=== PATIENT | female | born 1995 | race Caucasian/White ===

== ENCOUNTER → 2018-03-26 15:59 | Outpatient (REF) | payer MEDICAID, SELFPAY ==
[2018-03-31 12:45] LABS: Methylphenidate NEGATIVE; Ritalinic Acid NEGATIVE
== END ==
LOC: NCHCN 15:59
PROVIDERS: PCP Family Medicine; Visit Provider Physician Assistant Medical
DX: F90.9 Attention-deficit hyperactivity disorder, unspecified type (principal); Z51.81 Encounter for therapeutic drug level monitoring
CPT/HCPCS: 80360

== ENCOUNTER → 2018-04-20 10:00 | Outpatient (RCR) | payer MEDICAID, SELFPAY ==
--- NOTE | 2013-09-11 10:30 | TODAY_ITS ---
To: PCP [facility] Reason for today's visit: INTERESTED IN TEEN SASH Plan: PT CAME IN AND WE WENT OVER SASH AND THE PROGRAM & WHAT HER NEEDS AND GOALS ARE - SHE JUST AGED OUT OF DCF AND WANTS TO FINISH SCHOOL - ONLY HAS A FEW CREDITS LEFT, NEEDS TO GET A NEW SS CARD, WANTS TO GET PERMIT, HOUSING, JOB Action Plan: WORK ON GETTING SS CARD & TRANSCRIPTS Chronic Condition: Referred to:
--- NOTE | 2013-09-17 11:00 | TODAY_ITS ---
To: PCP Reason for today's visit: [facility] Plan: PT GOT HER NEW SS CARD & HER SS PAYMENT TRANSFERED TO HER, SHE GOT HER PERMIT, WE FILLED OUT APPLICATION FOR [facility], GOT HER SET UP A PATIENT WITH [facility] Action Plan: NEED TO GET TRANSCRIPTS Chronic Condition: Referred to:
--- NOTE | 2013-09-25 15:10 | TODAY_ITS ---
To: PCP [facility] Reason for today's visit: [facility] Plan: GOT PT'S TRANSCRIPTS, CALLED [facility] TO FOLLOW UP ON APPLICATION Action Plan: Chronic Condition: Referred to:
--- NOTE | 2013-09-27 10:00 | TODAY_ITS ---
To: PCP Reason for today's visit: [facility] Plan: SHE GOT RE APPLICAITON BACK WITH SOME QUESTIONS SO SHE CAME IN - WE ANSWERED THE QUESTIONS AND MAILED IT IN Action Plan: Chronic Condition: Referred to:
--- NOTE | 2013-10-01 11:00 | TODAY_ITS ---
To: PCP [facility] Reason for today's visit: [facility] Plan: WE CALLED RONAN BECAUSE SHE THOUGHT SHE SHOULD HAVE RECIEVED HER 3SQS CARD BY NOW, AMANDA SAID THEY HAVE 5-7 DAYS TO GET THE CARD OUT - SHE SAID IF SHE DOESN'T RECIEVE IT BY MONDAY TO CALL BACK OR GO IN. TOLD CARLYLE THAT I HAD A CALL INTO [employer] TO FIND OUT ABOUT SCHOOL AND GETTING QUALITY SYSTEMS TECHNICIAN JOB IN DAYCARE Action Plan: WORKING ON GETTING CARLYLE ENROLLED IN SCHOOL & PT JOB Chronic Condition: Referred to:
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
--- NOTE | 2013-10-18 10:57 | TODAY_ITS ---
To: PCP [facility] Reason for today's visit: [facility] Plan: PT CAME IN AND WE CALLED TO FILE AN APPEAL WITH [facility] AND DID THE PAPERWORK FOR EP MANAGEMENT & THEN HEADED OVER TO [facility] AND GOT HER ENROLLED, SHE STARTS 10/28 - RENALDO AT [facility] SUGGESTED FINDING OUT IF SHE SIGNED THE OVER 18 AGREEMENT Action Plan: I WILL CONTACT DCF AND SEE IF SHE SIGNED THE OVER 18 AGREEMENT & I WILL MAIL EP MANAGEMENT APPLICATION Chronic Condition: Referred to:
--- NOTE | 2013-11-29 11:00 | TODAY_ITS ---
To: PCP [facility] Reason for today's visit: [facility] Plan: MET WITH PT AT [facility]. SHE IS ON SCHEDULE FOR GRADUATION ON 01/24/14. WE DISCUSSED THE IMPORTANCE OF BEING AT SCHOOL WHEN SHE IS SUPPOSE TO BE THERE. WE CALLED RENAN AT [facility] AND SET UP A MEETING TO GET HER SIGNED UP FOR YOUTH DEVELOPMENT PROGRAM. WE TALKED ABOUT [facility] AND SHE WAS SUPER EXCITED AND SAID SHE WOULD GET APPLICATION DONE BY NEXT MONDAY. WE SIGNED THE [employer] APPLICATION. WE TALKED ABOUT STAYING FOCUSED & GETTING A BANK ACCOUNT & SETTING UP A BUDGET. Action Plan: Chronic Condition: Referred to:
--- NOTE | 2013-12-11 15:30 | TODAY_ITS ---
To: PCP [facility] Reason for today's visit: MET WITH RENAN QUEEN Plan: GOT HER SIGNED UP FOR THE YOUTH IN TRANSISTION PROGRAM. RENAN TOLD HER ABOUT THE TRANSITIONAL HOUSING IF SHE NEEDS IT FOR THE MEANTIME. SHE GOT HER ESSAYS FOR [employer] [facility] DONE AND JUST WAITING FOR ESTELLA TO GRADE THEM. SHE IS ON THE WAITING LIST FOR [facility] Action Plan: Chronic Condition: Referred to:
--- NOTE | 2013-12-23 15:00 | TODAY_ITS ---
To: PCP [facility] Reason for today's visit: [facility] Plan: CARLYLE CAME IN BECAUSE SHE WAS AT DR. 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 I CONTACTED ABOUT RENALDO GETTING YULIANA TRANSCRIPT FOR HER COLLEGE APPLICATION & THE PROBLEMS WITH HER NEW TRAVELING PHLEBOTOMIST. RENAN MORENO [facility] HAD EMAILED ME EARLIER ABOUT RESCHEDULING WITH CARLYLE BECAUSE SHE COULDN'T MAKE IT IN THE OFFICE. Action Plan: Chronic Condition: Referred to:
--- NOTE | 2014-01-06 11:00 | TODAY_ITS ---
To: PCP [facility] Reason for today's visit: [facility] Plan: MET WITH CARLYLE TWICE LAST WEEK AND TODAY. 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 SHE IS ALSO INTERESTED IN MENTORING KIDS THROUGH A DCF PROGRAM? I HAVE CONTACTED RENAN CAO TO FIND OUT MORE ABOUT SUCH A PROGRAM. SHE HAS COMPLETED THE ONLINE APPLICATION FOR [facility] - SHE EXPLAINED TO ME THAT SHE WOULD MUCH RATHER GO TO [facility] VS. [facility] BECAUSE OF THE LOCATION OF HER BIOLOGICAL FATHER. WE ARE STILL WORKING ON HOUSING AND I WILL CONTACT [facility] TO FIND OUT WHERE SHE IS AT ON THE LIST Action Plan: Chronic Condition: Referred to:
--- NOTE | 2014-01-16 11:31 | TODAY_ITS ---
To: PCP [facility] Reason for today's visit: [facility] Plan: MET WITH CARLYLE AND WE WILL FILLED OUT THE FAFSA APPLICATION AND THE VSAC APPLICATION. WE CALLED [facility] AND GOT AN APPT WITH AN ADMISSIONS COUNSELOR Action Plan: Chronic Condition: Referred to:
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
--- NOTE | 2014-01-24 11:00 | TODAY_ITS ---
To: PCP [facility] Reason for today's visit: GRADUATION Plan: WENT TO SEE CARLYLE GRADUATE FROM [employer] Action Plan: Chronic Condition: Referred to:
--- NOTE | 2014-01-30 10:31 | TODAY_ITS ---
To: PCP [facility] Reason for today's visit: CERTIFICATE Plan: MET WITH CARLYLE AND WE SEND PAPERWORK TO GET HER CERTIFICATE. LATER IN THE AFTERNOON WE MET WITH RENAN AT [facility] AND TRIED GETTING HER SS FIGURED OUT. SHE GOT A VOUCHER FOR $500 FROM [facility] SO SHE CAN MOVE IN WITH A FRIEND IN [place]. Action Plan: Chronic Condition: Referred to:
--- NOTE | 2014-02-06 13:00 | TODAY_ITS ---
To: PCP [facility] Reason for today's visit: [facility] Plan: MET WITH PT SEEMS TO BE DOING OK, STILL STAYING AT [facility] AND IS PLANNING ON STAYING THERE UNTIL IT CLOSES IN APR. WAIT FOR CERTIFICATE TO COME IN TO COMPLETE NATIONAL GUARD SIGN UPS. INTERESTED IN GOING TO SCHOOL AT [facility] [place] - LOOKING FOR A JOB WELL. GOT A PT JOB BABYSITTING FOR SOMEONE Monday. MEETING WITH PAIGE ON MONDAY AND WILL TALK TO HER ABOUT WHY SHE WON'T WRITE A LETTER STATING SHE IS MENTALLY CAPABLE OF TAKING CARE OF HERSELF SO THAT SHE WILL NOT NEED A PAYEE FOR HER SS CHECK. I ALSO GAVE HER A LITTLE CALENDAR BOOK SO THAT SHE CAN KEEP TRACK OF HER APPOINTMENTS. Action Plan: Chronic Condition: Referred to:
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
--- NOTE | 2014-02-20 13:00 | TODAY_ITS ---
To: PCP [facility] Reason for today's visit: [facility] Plan: MET WITH CARLYLE AT [facility], RENAN QUIROZ WHO WAS [facility]'S [employer] WORKER IS NO LONGER WORKING AT [facility]. ANOTHER RENAN IS TAKING OVER [facility] IN THE MEANTIME. WE CALLED [facility] AND UPDATED CARLYLE'S PHONE NUMBER AND MADE SURE THAT THEY GOT HER UPDATED ADDRESS AND ASKED THAT THEY CALL CARLYLE BACK TO TELL HER WHERE SHE IS AT ON THE WAITLIST. CARLYLE STATES THAT HER MOM IS GOING TO GIVE HER HER CHECK EACH MONTH AND THAT SHE OPENED A BANK ACCOUNT. CARLYLE FILLED OUT HER ESD IR AND WE MAILED THAT IN FOR HER 3SQS BENEFITS. WE ALSO MADE AN APPOINTMENT TO MEET WITH [facility] TO FIND OUT ABOUT GETTING HER ENROLLED IN SCHOOL THIS FALL. Action Plan: Chronic Condition: Referred to:
--- NOTE | 2014-02-26 11:00 | TODAY_ITS ---
To: PCP [facility] Reason for today's visit: [facility] Plan: MET WITH CARLYLE AND WE WENT TO CC TO GET HER SIGNED UP. SHE NEEDS TO GO ONLINE AND COMPLETE THE APPLICATION AND THEN DO THE TESTS SO THEY KNOW WHERE TO PLACE HER. 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 Action Plan: Chronic Condition: Referred to:
--- NOTE | 2014-03-12 10:00 | TODAY_ITS ---
To: PCP [facility] Reason for today's visit: [facility] Plan: MET WITH CARLYLE AND SHE REPORTS SHE HAD BEEN TO [facility] LAST WEEK AND THAT SHE HAS A DR APPT TOMORROW. SHE HASN'T DONE SCHOOL YET BUT STATES THAT SHE WANTS TO - WE SET UP A MEETING FOR NEXT MONDAY AND I SUGGESTED THAT SHE DO THE APPLICATION AND SCHEDULE THE ASSESSMENT TEXTS BY THEN. Action Plan: Chronic Condition: Referred to:
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
--- NOTE | 2014-03-24 10:00 | TODAY_ITS ---
To: PCP [facility] Reason for today's visit: [facility] Plan: MET WITH CARLYLE AND BROUGHT HER TO HER FOLLOW-UP DR APODACA. SHE STILL HAS NOT DONE HER APPLICATION FOR [facility] - STATES SHE IS GOING TO DO IT WITH RENAN TOMORROW. I TEXTED RENAN AND SHE HAD NO IDEA. SHE IS GOING TO TOUCH BASE WITH HER ON THAT. I TOLD CARLYLE SHE IS PERFECTLY CAPABLE OF DOING IT HERSELF AND IF SHE WANTS TO GO TO SCHOOL THIS SEMESTER SHE NEEDS TO DO THE APPLICATION AND THE ASSESSMENT TESTS MYRNA! I ALSO FOUND OUT [facility] HAD SOME GOOD APTS AVAILABLE IN [facility] SO I FAXED RENAN THE APPLICATION TO GIVE TO CARLYLE TO HAVE HER FILL OUT. Action Plan: CARLYLE TO DO [facility] APPLICATION AND ASSESSMENT TESTS & FILL OUT [facility] APPLICATION Chronic Condition: Referred to:
== END ==
LOC: COCO 09-11 10:30
PROVIDERS: PCP Nurse Practitioner Family
DX: 799.89 (principal)

== ENCOUNTER 2018-05-11 16:48 | Outpatient (REF) | payer MEDICAID, SELFPAY ==
[2018-05-11 19:28] LABS: HGB 12.7 g/dL (12.0-15.5); Mean Corp. HGB Concentration 31.8 g/dL (32.0-36.0); Mean Corpuscular Hemoglobin 24.9 pg (27.0-33.0); Mean Corpuscular Volume 78.4 fL (80-95); Mean Platelet Volume 10.4 fL (8.0-11.0); Platelet Count 365 x1000/uL (130-400); RBC Distribution Width 16.1 % (11.7-14.6); White Blood Cell Count 13.05 k/cumm (4.4-10.8)
[2018-05-11 19:42] LABS: TSH (W/Ref FT4) 0.85 uIU/mL (0.358-3.74)
== END 2018-05-11 17:08 ==
LOC: NCHCN 16:48
PROVIDERS: PCP Nurse Practitioner Family; Visit Provider Family Medicine
DX: R51 Headache (principal); R53.83 Other fatigue; O24.419 Gestational diabetes mellitus in pregnancy, unspecified control
CPT/HCPCS: 85027; 83735; 84443

== ENCOUNTER 2018-06-10 00:58 | Emergency (ER) | payer MEDICAID, SELFPAY ==
[2018-06-10 01:18] VITALS: BP 140/70; PULSE 94; RESP 28; TEMP 37; O2SAT 98
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
[2018-06-10 01:55] VITALS: RESP 16
[2018-06-10] MEDS: Lactated Ringers 1,000 ML 200 ML IV (01:55)
[2018-06-10] MEDS: Normal Saline Flush 10 ML SYR IVP (01:55)
[2018-06-10 02:01] LABS: Abs Immature Grans 0.02 k/cumm (0.0-0.09); Absolute Basophil Count 0.03 k/cumm (0.0-0.2); Absolute Eosinophil Count 0.06 k/cumm (0.0-0.7); Absolute Lymphocyte Count 3.03 k/cumm (1.2-3.4); Basophils % 0.2; Eosinophils % 0.4; HCT 40.7 % (36.0-46.0); Immature Grans % 0.1; Lymphocytes % 21.4; Mean Corp. HGB Concentration 31.9 g/dL (32.0-36.0); Mean Corpuscular Hemoglobin 24.9 pg (27.0-33.0); Mean Corpuscular Volume 77.8 fL (80-95); Mean Platelet Volume 9.8 fL (8.0-11.0); Monocytes % 4.2; Neutrophils % 73.7; Platelet Count 369 x1000/uL (130-400); RBC 5.23 m/cumm (4.00-5.20); RBC Distribution Width 15.8 % (11.7-14.6); White Blood Cell Count 14.14 k/cumm (4.4-10.8)
[2018-06-10 02:04] LABS: Absolute Monocyte Count 0.59 k/cumm (0.11-0.7); Absolute Neutrophil Count 10.42 k/cumm (1.2-6.7)
[2018-06-10 02:14] LABS: VALPROIC ACID 26.5 ug/mL (50-100)
[2018-06-10 02:15] LABS: ALT 24 U/L (12-78); AST 19 U/L (15-37); Albumin 3.7 g/dL (3.4-5.0); Alkaline Phosphatase 94 U/L (46-116); Anion Gap 14.1 mmol/L (3-11); BUN 9 mg/dL (7-18); Bilirubin, Total 0.1 mg/dL (0.2-1.0); CO2 24.9 mmol/L (21.0-32.0); CREATININE 0.65 mg/dL (0.55-1.02); Calcium 8.9 mg/dL (8.5-10.1); Chloride 103 mmol/L (98-107); ETHANOL BLOOD 173.9 mg/dL (<3); Glucose 99 mg/dL (70-100); Potassium 3.5 mmol/L (3.5-5.1); Sodium 142 mmol/L (136-145); Total Protein 8.4 g/dL (6.4-8.2)
[2018-06-10 02:27] LABS: Salicylate < 2.8 mg/dL (2.8-20.0)
[2018-06-10 02:44] LABS: Acetaminophen < 2 ug/mL (10-30)
[2018-06-10 02:57] LABS: HCG Qual (Serum) Negative
[2018-06-10 04:32] VITALS: BP 109/66; PULSE 87; RESP 16; TEMP 36.5; O2SAT 98
--- NOTE | 2018-06-10 06:10 | NUR.NOTE ---
Nursing Note: Attempted to call boyfriend's phone number once again, no answer. Unable to leave VM. Will leave bottles in labeled bag here in ED at [facility] desk, under counter.
== END 2018-06-10 04:43 | disposition home or self-care (01) ==
PROVIDERS: Emergency Provider Emergency Medicine; PCP Nurse Practitioner Family
DX: F10.129 Alcohol abuse with intoxication, unspecified (principal); Y90.6 Blood alcohol level of 120-199 mg/100 ml
CPT/HCPCS: 36415; 80053; 81025; 96360; 96361; 99284; 80164; 80320; 80329; 84703; 85025

== ENCOUNTER 2018-06-22 12:58 | Outpatient (RCR) | payer MEDICAID, SELFPAY ==
--- NOTE | 2018-06-22 12:59 | COCO.CNN ---
Primary Reason for Visit Medical/Dental/Vision (Updates) Referral to Care Coordination Referral to Care Coordination: Yes Type: PCP Referral to Services: No Care Plan - Plan of Care Assessment/Background: Kendrick came in with her baby and new room mate. She states she is doing ok. She asked that I reach out to her mom to help with her dads insurance. She has had multiple visits to [facility] for her son. She will be having another one comeing up. We discused gas cards and how to get help with that in the future. Plan of Care: as needed or a home vist with [facility] Self Management Plan Complete?: Yes
== END 2018-07-20 23:59 | disposition home or self-care (01) ==
LOC: COCO 12:58
PROVIDERS: PCP Nurse Practitioner Family; Visit Provider Nurse Practitioner Family
DX: R69 Illness, unspecified (principal)

== ENCOUNTER 2018-11-09 22:45 | Emergency (ER) | payer MEDICAID, SELFPAY ==
[2018-11-09 22:50] VITALS: PULSE 105; RESP 16; TEMP 36.7; O2SAT 99
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
== END 2018-11-09 23:22 | disposition home or self-care (01) ==
PROVIDERS: Emergency Provider Emergency Medicine; PCP Nurse Practitioner Family
DX: S61.411A Laceration without foreign body of right hand, initial encounter (principal); X58.XXXA Exposure to other specified factors, initial encounter
CPT/HCPCS: 99282

== ENCOUNTER 2018-12-08 02:27 | Emergency (ER) | payer MEDICAID, SELFPAY ==
[2018-12-08 02:36] VITALS: BP 120/76; PULSE 92; RESP 16; TEMP 36.5; O2SAT 99
[2018-12-08 02:44] VITALS: RESP 15
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
[2018-12-08 03:12] VITALS: BP 120/76; PULSE 90; RESP 15; TEMP 36.5; O2SAT 99
[2018-12-08] MEDS: Albuterol HFA 8 GM 60 PUFF INH IH (03:12)
[2018-12-08] MEDS: Acetaminophen 325 MG TAB 650 MG PO (03:12)
[2018-12-08] MEDS: Inhaler, Assist Device 1 EACH MC (03:12)
== END 2018-12-08 03:17 | disposition home or self-care (01) ==
PROVIDERS: Emergency Provider Emergency Medicine; PCP Nurse Practitioner Family
DX: R07.89 Other chest pain (principal); J45.909 Unspecified asthma, uncomplicated
CPT/HCPCS: 99282

== ENCOUNTER 2019-01-14 20:52 | Emergency (ER) | payer MEDICAID, SELFPAY ==
[2019-01-14 20:56] VITALS: BP 142/114; PULSE 103; RESP 18; TEMP 37.3; O2SAT 99
[2019-01-14 21:02] VITALS: BP 148/91
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
[2019-01-14] MEDS: Acetaminophen 325 MG TAB 650 MG PO (21:52)
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
== END 2019-01-14 23:20 | disposition home or self-care (01) ==
PROVIDERS: Emergency Provider Student in an Organized Health Care Education/Training Program; PCP Nurse Practitioner Family
DX: M25.521 Pain in right elbow (principal); M25.531 Pain in right wrist; M79.641 Pain in right hand; Y04.0XXA Assault by unarmed brawl or fight, initial encounter
CPT/HCPCS: 99284; 73080; 73110; 73130

== ENCOUNTER 2019-01-20 02:34 | Emergency (ER) | payer MEDICAID, SELFPAY ==
[2019-01-20 02:41] VITALS: BP 140/76; PULSE 108; RESP 18; TEMP 36.3; O2SAT 98
--- NOTE | 2019-01-20 02:53 | DI.RAD_ITS ---
SYMPTOM/DIAGNOSIS: PAIN, S/P FALL RIGHT KNEE: Three views were obtained. No fracture is seen.
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
--- NOTE | 2019-01-20 04:55 | DI.VRAD_ITS ---
EXAM: XR Right Knee EXAM DATE/TIME: 01/20/2019 2:53 AM CLINICAL HISTORY: 24 years old, female; Knee; Right; Patient HX: Pain S/P fall TECHNIQUE: Imaging protocol: XR Right knee. Views: 3 views. COMPARISON: CR RIGHT KNEE 3 VIEWS 05/28/2014 6:26 PM FINDINGS: Bones/joints: Typical for age. No evidence of acute fracture. Soft tissues: Unremarkable. IMPRESSION: No acute findings. Dictated and Authenticated by: Faisal Joy MD. Ordering:CORETTA Covarrubias MD
== END 2019-01-20 03:24 | disposition home or self-care (01) ==
PROVIDERS: Emergency Provider Emergency Medicine
DX: S80.01XA Contusion of right knee, initial encounter (principal); Y04.8XXA Assault by other bodily force, initial encounter
CPT/HCPCS: 29505; 73562; 99283; 99282; E0114; L1830

== ENCOUNTER 2019-04-29 10:51 | Emergency (ER) | payer MEDICAID, SELFPAY ==
[2019-04-29 10:38] VITALS: BP 136/64; PULSE 94; RESP 18; TEMP 37.2; O2SAT 98
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
[2019-04-29 12:31] LABS: Bilirubin Negative (Negative); Blood Trace-intact (Negative); Clarity Clear (Clear); Glucose Negative (Negative); Ketones Negative (Negative); Leukocyte Esterase Negative (Negative); Nitrite Negative (Negative); Specific Gravity 1.015 (1.005-1.025); Urobilinogen 0.2 EU/dL (Up TO 0.2)
[2019-04-29] MEDS: Normal Saline Flush 10 ML SYR IVP (12:40)
[2019-04-29] MEDS: Normal Saline 1,000 ML 1000 ML IV (12:40)
[2019-04-29 12:41] LABS: *AMPHETAMINES SCREEN URINE Negative (Negative); *BARBITURATES SCREEN URINE Negative (Negative); *BENZODIAZEPINES SCREEN URINE Negative (Negative); Bacteria Few HPF (Negative); C & S Indicated? No; Cannabinoids THC Negative (Negative); Casts Negative LPF (Negative); Cocaine Screen,Urine Negative (Negative); Crystals Negative HPF (Negative); Epithelial Cells Few HPF (Negative); METHADONE URINE SCREEN Negative (Negative); Mucus Moderate (Negative); OPIATES URINE SCREEN Negative (Negative); RBC 0-2 (0-2); WBC 0-2 HPF (0-5)
[2019-04-29 12:45] LABS: Abs Immature Grans 0.04 k/cumm (0.0-0.09); Absolute Basophil Count 0.03 k/cumm (0.0-0.2); Absolute Eosinophil Count 0.02 k/cumm (0.0-0.7); Absolute Lymphocyte Count 3.67 k/cumm (1.2-3.4); Absolute Monocyte Count 0.57 k/cumm (0.11-0.7); Basophils % 0.2; Eosinophils % 0.1; HCT 41.9 % (36.0-46.0); HGB 13.1 g/dL (12.0-15.5); Immature Grans % 0.2; Lymphocytes % 22.6; Mean Corp. HGB Concentration 31.3 g/dL (32.0-36.0); Mean Corpuscular Hemoglobin 24.2 pg (27.0-33.0); Mean Corpuscular Volume 77.4 fL (80-95); Mean Platelet Volume 9.8 fL (8.0-11.0); Monocytes % 3.5; Neutrophils % 73.4; Platelet Count 448 x1000/uL (130-400); RBC 5.41 m/cumm (4.00-5.20); RBC Distribution Width 16.4 % (11.7-14.6); White Blood Cell Count 16.25 k/cumm (4.4-10.8)
[2019-04-29 12:48] LABS: Absolute Neutrophil Count 11.93 k/cumm (1.2-6.7)
[2019-04-29 12:48] LABS: Tricyclic Antidepressants Negative (Negative)
[2019-04-29 13:20] LABS: ALT 33 U/L (14-59); AST 24 U/L (15-37); Albumin 4.2 g/dL (3.4-5.0); Alkaline Phosphatase 97 U/L (46-116); Anion Gap 11.2 mmol/L (3-11); BUN 6 mg/dL (7-18); Bilirubin, Total 0.6 mg/dL (0.2-1.0); CO2 25.8 mmol/L (21.0-32.0); CREATININE 0.64 mg/dL (0.55-1.02); Calcium 9.1 mg/dL (8.5-10.1); Chloride 104 mmol/L (98-107); ETHANOL BLOOD 18.9 mg/dL (<3); Glucose 82 mg/dL (70-100); Magnesium 1.8 mg/dL (1.8-2.4); Potassium 3.7 mmol/L (3.5-5.1); Sodium 141 mmol/L (136-145); Total Protein 8.6 g/dL (6.4-8.2)
[2019-04-29 13:23] LABS: Troponin I < 0.05 ng/mL (0.00-0.06)
[2019-04-29 13:34] LABS: Salicylate < 2.8 mg/dL (2.8-20.0)
[2019-04-29 13:35] LABS: Acetaminophen < 2 ug/mL (10-30)
--- NOTE | 2019-04-29 14:55 | NUR.NOTE ---
pt provided with meal tray after [facility] exam boyfriend sitting in room with pt Nursing Note:
[2019-04-29] MEDS: Ondansetron O.D.T. 4 MG TABEF (16:30)
[2019-04-29] MEDS: metroNIDAZOLE 500 MG TAB (16:32)
[2019-04-29] MEDS: Levonorgestrel 1.5 MG KIT/PACKET PO (16:33)
[2019-04-29] MEDS: Azithromycin 250 MG TAB (16:34)
[2019-04-29] MEDS: cefTRIAXone 250 MG VIAL (16:35)
[2019-04-29] MEDS: Hepatitis B Virus Vaccine 20 MCG/ML VIAL IM (17:19)
[2019-04-29] MEDS: Emtricitabine/Tenofovir 200 mg/300 mg TAB 1 EACH (17:20)
[2019-04-29] MEDS: Raltegravir Potassium 400 MG TAB PO (17:21)
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
[2019-04-29 18:54] VITALS: PULSE 89; RESP 16; TEMP 37.1; O2SAT 97
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
== END 2019-04-29 18:55 | disposition home or self-care (01) ==
PROVIDERS: Emergency Provider Physician Assistant
DX: F41.8 Other specified anxiety disorders (principal); S50.812A Abrasion of left forearm, initial encounter; X78.0XXA Intentional self-harm by sharp glass, initial encounter; R10.2 Pelvic and perineal pain; E11.9 Type 2 diabetes mellitus without complications
CPT/HCPCS: 36415; 80053; 80307; 81025; 90471; 93005; 96361; 96372; 99285; 80320; 80329; 81003; 81015; 83735; 84484; 85025; 93010; J0696

== ENCOUNTER 2019-07-12 13:15 | Outpatient (REF) | payer MEDICAID, SELFPAY ==
[2019-07-15 11:17] LABS: Syphilis Total Ab w/Reflex Nonreactive (Nonreactive)
[2019-07-15 11:36] LABS: HBs Antibody, Quant 6.5 mIU/mL (See Note); Hepatitis B Surface Ab Negative (See Note)
[2019-07-15 11:37] LABS: HIV-1/2 Ag & Ab Screen Negative (Negative)
[2019-07-15 11:48] LABS: Hepatitis B Surface Ag Negative (Negative)
[2019-07-15 12:51] LABS: Hep B Core Antibody Negative (Negative); Hepatitis C Ab w Rflx HCV PCR Negative (Negative)
== END 2019-07-12 13:35 ==
LOC: LBO 13:15
PROVIDERS: Visit Provider Nurse Practitioner Women's Health
DX: Z11.3 Encounter for screening for infections with a predominantly sexual mode of transmission (principal); Z11.59 Encounter for screening for other viral diseases; Z01.84 Encounter for antibody response examination
CPT/HCPCS: 36415; 86704; 86706; 86803; 87340; 87389; 86780

== ENCOUNTER 2019-07-26 08:16 | Emergency (ER) | payer MEDICAID, SELFPAY ==
[2019-07-26 08:24] VITALS: BP 135/70; PULSE 91; RESP 16; TEMP 36.8; O2SAT 100
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
[2019-07-26 09:08] VITALS: BP 135/70; PULSE 91; RESP 16; TEMP 36.8; O2SAT 100
== END 2019-07-26 09:08 | disposition home or self-care (01) ==
PROVIDERS: Emergency Provider Physician Assistant
DX: K13.0 Diseases of lips (principal); S01.531A Puncture wound without foreign body of lip, initial encounter; W26.8XXA Contact with other sharp object(s), not elsewhere classified, initial encounter
CPT/HCPCS: 99283

== ENCOUNTER 2019-08-06 21:36 | Emergency (ER) | payer MEDICAID, SELFPAY ==
[2019-08-06 21:42] VITALS: BP 132/78; PULSE 106; RESP 16; TEMP 36.9; O2SAT 100
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
[2019-08-06 22:37] LABS: Bilirubin Negative (Negative); Blood Negative (Negative); Clarity Clear (Clear); Glucose Negative (Negative); Ketones Negative (Negative); Leukocyte Esterase Negative (Negative); Nitrite Negative (Negative); Urobilinogen 0.2 EU/dL (Up TO 0.2)
[2019-08-06 23:02] VITALS: BP 112/76; PULSE 87; RESP 16; TEMP 37.2; O2SAT 97
== END 2019-08-06 22:55 | disposition home or self-care (01) ==
PROVIDERS: Emergency Provider Emergency Medicine
DX: R10.32 Left lower quadrant pain (principal); R11.2 Nausea with vomiting, unspecified
CPT/HCPCS: 81025; 99283; 81003

== ENCOUNTER 2019-08-29 15:47 | Emergency (ER) | payer MEDICAID, SELFPAY ==
[2019-08-29 15:49] VITALS: BP 166/87; PULSE 95; RESP 14; TEMP 36.8; O2SAT 99
[2019-08-29 17:01] LABS: Abs Immature Grans 0.04 k/cumm (0.0-0.09); Absolute Basophil Count 0.03 k/cumm (0.0-0.2); Absolute Eosinophil Count 0.12 k/cumm (0.0-0.7); Absolute Lymphocyte Count 3.11 k/cumm (1.2-3.4); Absolute Monocyte Count 0.75 k/cumm (0.11-0.7); Absolute Neutrophil Count 9.52 k/cumm (1.2-6.7); Basophils % 0.2; Eosinophils % 0.9; HCT 40.4 % (36.0-46.0); HGB 12.4 g/dL (12.0-15.5); Immature Grans % 0.3 %; Lymphocytes % 22.9; Mean Corp. HGB Concentration 30.7 g/dL (32.0-36.0); Mean Corpuscular Hemoglobin 24.5 pg (27.0-33.0); Mean Corpuscular Volume 79.8 fL (80-95); Mean Platelet Volume 10.1 fL (8.0-11.0); Monocytes % 5.5; Neutrophils % 70.2; Platelet Count 440 x1000/uL (130-400); RBC 5.06 m/cumm (4.00-5.20); RBC Distribution Width 15.8 % (11.7-14.6); White Blood Cell Count 13.56 k/cumm (4.4-10.8)
[2019-08-29 17:20] LABS: Bilirubin Negative (Negative); Blood Negative (Negative); Clarity Cloudy (Clear); Glucose Negative (Negative); Ketones Negative (Negative); Leukocyte Esterase Small (Negative); Nitrite Negative (Negative); Urobilinogen 0.2 EU/dL (Up TO 0.2)
[2019-08-29 17:29] LABS: Bacteria Packed HPF (Negative); C & S Indicated? No/Sq. Contamination; Epithelial Cells Many HPF (Negative)
[2019-08-29 17:30] LABS: ALT 25 U/L (14-59); AST 15 U/L (15-37); Albumin 3.6 g/dL (3.4-5.0); Alkaline Phosphatase 84 U/L (46-116); Anion Gap 11.7 mmol/L (3-11); BUN 11 mg/dL (7-18); Bilirubin, Total 0.2 mg/dL (0.2-1.0); CO2 26.3 mmol/L (21.0-32.0); CREATININE 0.58 mg/dL (0.55-1.02); Calcium 8.9 mg/dL (8.5-10.1); Chloride 104 mmol/L (98-107); Glucose 79 mg/dL (74-106); Potassium 3.6 mmol/L (3.5-5.1); Sodium 142 mmol/L (136-145); Total Protein 8.4 g/dL (6.4-8.2)
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
[2019-08-29 19:16] LABS: Hemoglobin A1C 5.6 % (3.8-5.6)
== END 2019-08-29 18:08 | disposition home or self-care (01) ==
PROVIDERS: Emergency Provider Physician Assistant
DX: E11.8 Type 2 diabetes mellitus with unspecified complications (principal); Z76.0 Encounter for issue of repeat prescription; Z79.84 Long term (current) use of oral hypoglycemic drugs
CPT/HCPCS: 36415; 80053; 81025; 99283; 81003; 81015; 83036; 85025

== ENCOUNTER 2019-09-11 18:44 | Emergency (ER) | payer MEDICAID, SELFPAY ==
[2019-09-11 18:47] VITALS: BP 128/79; PULSE 85; RESP 18; O2SAT 99
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
--- NOTE | 2019-09-11 19:44 | DI.RAD_ITS ---
EXAM: XR KNEE RT 4V AP,LAT,JATINDER,PAT CLINICAL HISTORY: trauma, patellar pain. TECHNIQUE: 2D digital imaging was performed. COMPARISON: XR knee RT 3V AP,lat,jatinder from 01/20/2019 FINDINGS: BONES: No acute fracture is present. No bony destructive lesion is seen. JOINTS: The knee is normally aligned. No joint effusion is seen. SOFT TISSUE: Normal. IMPRESSION: Unremarkable radiographs of the right knee.
--- NOTE | 2019-09-11 19:49 | DI.VRAD_ITS ---
PROCEDURE INFORMATION: Exam: XR Right Knee Exam date and time: 09/11/2019 7:43 PM Age: 24 years old Clinical indication: Knee; Right; Patient HX: Patellar pain, popping occasionally TECHNIQUE: Imaging protocol: XR Right knee. Views: 4 or more views. COMPARISON: No relevant prior studies available. FINDINGS: Bones/joints: Normal. Soft tissues: Normal. IMPRESSION: No acute findings. Dictated and Authenticated by: Bayron Espino MD. Ordering:KALI Frank MD
== END 2019-09-11 20:45 | disposition home or self-care (01) ==
PROVIDERS: Emergency Provider Student in an Organized Health Care Education/Training Program; PCP Registered Nurse
DX: M25.562 Pain in left knee (principal); W19.XXXA Unspecified fall, initial encounter; E11.9 Type 2 diabetes mellitus without complications; Z79.84 Long term (current) use of oral hypoglycemic drugs
CPT/HCPCS: 29505; 99283; 73564; E0114

== ENCOUNTER 2022-01-03 11:30 | Observation (INO) | payer MEDICAID, SELFPAY ==
--- NOTE | 2022-01-03 | DI.US_ITS ---
Exam(s) US OB GHISLAINE WEIGHT EXAM: US OB GHISLAINE WEIGHT CLINICAL HISTORY: anatomy, gestational age, GHISLAINE. TECHNIQUE: Transabdominal obstetrical ultrasound performed. COMPARISON: US OB US 2-3 TRIMESTER TRANSABD*P from 04/17/2017 FINDINGS: Transabdominal obstetrical ultrasound performed. FINDINGS: Number of fetuses: One. position: Cephalic. heart rate: 157 bpm. Placental grade: There is a grade 2 placenta. Placental location: Posterior. No evidence of previa. BIOMETRIC DATA: BPD: 7.7cm consistent with 30 weeks 6 days. HC: 30.7cm consistent with 34 weeks 1 day. AC: 29.4cm consistent with 33 weeks 3 days. FL: 6.4cm consistent with 33 weeks. EFW: 2123 grms Composite Age: 32 weeks 6 days EDC by US: 02/22/2022 Heart Rate: 157BPM Amniotic fluid index: 11.7 cm. Largest pocket of fluid measures 4.12 cm. Amount of fluid is within no rmal limits. ANATOMICAL SURVEY: This was a limited anatomic evaluation. Four-chambered heart: Unremarkable. LVOT: Cannot be visualized due to the lie of the fetus. RVOT: Cannot be visualized due to the lie of the fetus. Left-sided stomach: Unremarkable. urinary bladder: Unremarkable. Bilateral kidneys: Unremarkable. Three-vessel cord: Unremarkable. Cord insertion: Unremarkable. Posterior fossa:Cannot be visualized well due to the lie of the fetus. ventricles: Could not be visualized well due to the lie of the fetus. nose: Unremarkable. lips: Unremarkable. palate: Unremarkable. spine: There is limited visualization of the spine due to the lie of the fetus. IMPRESSION: 1. Single live intrauterine gestation as above. 2. anatomic evaluation was limited due to the lie of the fetus. DATA REPOSITORY:
[2022-01-03 12:55] VITALS: BP 104/55; PULSE 84; RESP 18; TEMP 36.5
[2022-01-03 13:10] VITALS: BP 104/55; PULSE 84
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
[2022-01-03 13:36] LABS: HCT 33.6 % (36.0-46.0); HGB 10.5 g/dL (11.2-15.7); MCHC 31.3 % (32.0-36.0); MCV 77 fL (80-95); MPV 10.3 fL (8.0-11.0); Platelet Count 267 10^3/uL (130-400); RBC 4.37 10^6/uL (3.93-5.22); RDW 16.1 % (11.7-14.6); WBC 10.09 10^3/uL (4.4-10.8)
[2022-01-03 13:47] LABS: Bilirubin Negative (Negative); Blood Negative (Negative); Clarity Clear (Clear); Glucose Negative (Negative); Ketones Negative (Negative); Leukocyte Esterase Negative (Negative); Nitrite Negative (Negative); Specific Gravity >= 1.030 (1.005-1.025); Urobilinogen 0.2 EU/dL (Up TO 0.2)
[2022-01-03 14:17] LABS: ROM Plus Negative
[2022-01-03 14:35] LABS: *AMPHETAMINES SCREEN URINE Negative (Negative); *BARBITURATES SCREEN URINE Negative (Negative); *BENZODIAZEPINES SCREEN URINE Negative (Negative); Cannabinoids THC Negative (Negative); Cocaine Screen,Urine Negative (Negative); METHADONE URINE SCREEN Negative (Negative); OPIATES URINE SCREEN Negative (Negative)
[2022-01-03 14:36] LABS: Tricyclic Antidepressants Negative (Negative)
[2022-01-03 14:37] LABS: Lab Add On Test DONE
[2022-01-03 15:20] LABS: ALT 20 U/L (14-59); AST 17 U/L (15-37); Albumin 2.8 g/dL (3.4-5.0); Alkaline Phosphatase 124 U/L (46-116); Anion Gap 10.2 mmol/L (3-11); BUN 7 mg/dL (7-18); Bilirubin, Total 0.2 mg/dL (0.2-1.0); CO2 21.8 mmol/L (21.0-32.0); CREATININE 0.5 mg/dL (0.55-1.02); Calcium 8.5 mg/dL (8.5-10.1); Chloride 106 mmol/L (98-107); Glucose 67 mg/dL (74-106); Potassium 3.9 mmol/L (3.5-5.1); Sodium 138 mmol/L (136-145); Total Protein 6.6 g/dL (6.4-8.2)
--- NOTE | 2022-01-03 16:04 | PGE_ITS ---
Date of service: 01/03/22 Time of Service: 15:04 Informed Consent Informed Consent: Other (SSE, lab work, US for gestational age and well being as well as GHISLAINE) Pelvic Exam Comments: repeat exam deferred as patient is not feeling discomfort at this time. SANDY Assessment and Plan Assessment and plan (1) History of delivery, currently : Status: Acute Assessment and plan: 1. US indicates gestational age today of 32w6d with ZORAN 02/22/22, and patient is 3 cm dilated, will give Betamethasone 12mg IM today and have patient return tomorrow for second dose. I have reviewed benefits and risks to this injection and patient agrees. She has arranged transportation to be able to come tomorrow afternoon for second dose. 2. Will discharge to home after IM steroid injection per consult with Dr. Sierra. Objective Abnormal lab results 01/03/22 01/03/22 01/03/22 Range/Units 12:40 13:20 13:20 Hgb 10.5 L (11.2-15.7) g/dL Hct 33.6 L (36.0-46.0) % MCV 77 L (80-95) fL MCH 24.0 L (27.0-33.0) pg MCHC 31.3 L (32.0-36.0) % RDW 16.1 H (11.7-14.6) % Creatinine 0.5 L (0.55-1.02) mg/dL Glucose 67 L (74-106) mg/dL Alkaline Phosphatase 124 H (46-116) U/L Albumin 2.8 L (3.4-5.0) g/dL Ur Specific [place] >= 1.030 H (1.005-1.025) Temp Pulse Resp BP 97.7 F 84 18 104/55 L 01/03/22 12:55 01/03/22 13:10 01/03/22 12:55 01/03/22 13:10 Laboratory Results WBC 10.09 10^3/uL (4.4-10.8) 01/03/22 13:20 RBC 4.37 10^6/uL (3.93-5.22) 01/03/22 13:20 Hgb 10.5 g/dL (11.2-15.7) L 01/03/22 13:20 Hct 33.6 % (36.0-46.0) L 01/03/22 13:20 MCV 77 fL (80-95) L 01/03/22 13:20 MCH 24.0 pg (27.0-33.0) L 01/03/22 13:20 MCHC 31.3 % (32.0-36.0) L 01/03/22 13:20 RDW 16.1 % (11.7-14.6) H 01/03/22 13:20 Plt Count 267 10^3/uL (130-400) 01/03/22 13:20 MPV 10.3 fL (8.0-11.0) 01/03/22 13:20 Sodium 138 mmol/L (136-145) 01/03/22 13:20 Potassium 3.9 mmol/L (3.5-5.1) 01/03/22 13:20 Chloride 106 mmol/L (98-107) 01/03/22 13:20 Carbon Dioxide 21.8 mmol/L (21.0-32.0) 01/03/22 13:20 Anion Gap 10.2 mmol/L (3-11) 01/03/22 13:20 BUN 7 mg/dL (7-18) 01/03/22 13:20 Creatinine 0.5 mg/dL (0.55-1.02) L 01/03/22 13:20 Estimated GFR/1.73 m2 >= 60.00 (mL/min/1.73m2) 01/03/22 13:20 Glucose 67 mg/dL (74-106) L 01/03/22 13:20 Calcium 8.5 mg/dL (8.5-10.1) 01/03/22 13:20 Total Bilirubin 0.2 mg/dL (0.2-1.0) 01/03/22 13:20 AST 17 U/L (15-37) 01/03/22 13:20 ALT 20 U/L (14-59) 01/03/22 13:20 Alkaline Phosphatase 124 U/L (46-116) H 01/03/22 13:20 Total Protein 6.6 g/dL (6.4-8.2) 01/03/22 13:20 Albumin 2.8 g/dL (3.4-5.0) L 01/03/22 13:20 Urine Color Yellow (Yellow) 01/03/22 12:40 Urine Clarity Clear (Clear) 01/03/22 12:40 Urine pH 6.0 (5-8) 01/03/22 12:40 Ur Specific [place] >= 1.030 (1.005-1.025) H 01/03/22 12:40 Urine Protein Negative mg/dL (Negative) 01/03/22 12:40 Urine Ketones Negative mg/dL (Negative) 01/03/22 12:40 Urine Blood Negative (Negative) 01/03/22 12:40 Urine Nitrite Negative (Negative) 01/03/22 12:40 Urine Bilirubin Negative (Negative) 01/03/22 12:40 Urine Urobilinogen 0.2 EU/dL (Up TO 0.2) 01/03/22 12:40 Ur Leukocyte Esterase Negative (Negative) 01/03/22 12:40 Urine Glucose Negative mg/dL (Negative) 01/03/22 12:40 Membranes Rupture Negative 01/03/22 12:45 Urine Opiates Screen Negative (Negative) 01/03/22 12:40 Urine Methadone Screen Negative (Negative) 01/03/22 12:40 Ur Barbiturates Screen Negative (Negative) 01/03/22 12:40 Ur Tricyclics Screen Negative (Negative) 01/03/22 12:40 Ur Amphetamines Screen Negative (Negative) 01/03/22 12:40 U Benzodiazepines Scrn Negative (Negative) 01/03/22 12:40 Urine Cocaine Screen Negative (Negative) 01/03/22 12:40 Ur THC Screen Negative (Negative) 01/03/22 12:40 SMA Gene Specimen Cancelled 01/03/22 11:37 SMA Gene Source Cancelled 01/03/22 11:37 SMA Gene Interpret Cancelled 01/03/22 11:37 SMA Gene Review By Cancelled 01/03/22 11:37 SMA Carrier Test Cancelled 01/03/22 11:37 SMA Nash Test Results Cancelled 01/03/22 11:37 Add-On Test Request DONE 01/03/22 13:20 Ref Test Comments Cancelled 01/03/22 11:37 Patient ABO/Rh O Positive 01/03/22 13:20 Antibody Screen NEGATIVE 01/03/22 13:20 Objective Narrative Objective Narrative: US indicates ZORAN 02/22/22 making her 32w6d. per worksheet. Subjective Interval history since last seen: Feeling comfortable, denies signs of labor or leaking fluid. Results Hemoglobin/Hematocrit: Hgb 10.5 g/dL (11.2-15.7) L 01/03/22 13:20 Hct 33.6 % (36.0-46.0) L 01/03/22 13:20 Abnormal Lab Findings: Abnormal Labs 01/03/22 01/03/22 01/03/22 12:40 13:20 13:20 Hgb 10.5 L Hct 33.6 L MCV 77 L MCH 24.0 L MCHC 31.3 L RDW 16.1 H Creatinine 0.5 L Glucose 67 L Alkaline Phosphatase 124 H Albumin 2.8 L Ur Specific [place] >= 1.030 H 01/03/22 12:45 Vaginal Vaginitis Screen - Final
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
[2022-01-03] MEDS: Betamet Acet/Betamet Na Ph Inj. 30 MG/5 ML 12 MG IM (16:23)
[2022-01-03 17:05] VITALS: BP 104/55; PULSE 72; TEMP 36.5
--- NOTE | 2022-01-03 17:57 | W.OBNST ---
Date of service: 01/03/22 Time of Service: 13:00 NST Evaluation Reason for NST Reasons for Nonstress Test: LABOR Test and Monitor Explained Test/Monitor Explained: Test Explained, Monitor Explained and Patient Verbalized Understanding Vital Signs Blood Pressure: 104/55 Pulse: 72 Temperature: 97.7 F NST Information Time on Monitor: 12:37 Date off Monitor: 01/03/22 Time off Monitor: 13:49 NST Interventions: PO Hydration and Meal Given NST Evaluation Patient States Movement: Present FHR Baseline: 130 Variability: Moderate 6-25 bpm Accelerations: 15x15 Decelerations: None NST Results: Reactive Note NST Note Note: NST is reactive and reassuring. CAT I. Please see H&P as well for this date. KH NST Reviewed and Verified by: Liana Villalobos
[2022-01-03 17:58] VITALS: BP 104/55; PULSE 72; TEMP 36.5
[2022-01-04 09:57] LABS: Hepatitis C Ab w Rflx HCV PCR Negative (Negative)
[2022-01-04 10:00] LABS: HIV-1/2 Ag & Ab Screen Negative (Negative)
[2022-01-04 10:09] LABS: Rubella IgG Ab (UVM) Positive (See Note); Syphilis Serology (RPR) Negative (Negative)
[2022-01-04 11:36] LABS: Hepatitis B Surface Ag Negative (Negative)
== END 2022-01-03 16:40 | disposition home or self-care (01) ==
PROVIDERS: Admitting Provider Advanced Practice Midwife; PCP Registered Nurse; Visit Provider Advanced Practice Midwife
DX: O09.893 Supervision of other high risk pregnancies, third trimester (principal); O26.893 Other specified pregnancy related conditions, third trimester; O99.323 Drug use complicating pregnancy, third trimester; F12.90 Cannabis use, unspecified, uncomplicated; O09.33 Supervision of pregnancy with insufficient antenatal care, third trimester; O99.353 Diseases of the nervous system complicating pregnancy, third trimester; O99.513 Diseases of the respiratory system complicating pregnancy, third trimester; O99.613 Diseases of the digestive system complicating pregnancy, third trimester; J45.909 Unspecified asthma, uncomplicated; K21.9 Gastro-esophageal reflux disease without esophagitis; G43.109 Migraine with aura, not intractable, without status migrainosus; K90.0 Celiac disease; F11.11 Opioid abuse, in remission; Z3A.32 32 weeks gestation of pregnancy
CPT/HCPCS: 76816; 80053; 80307; 81329; 84112; 85027; 86803; 86850; 86900; 86901; 87340; 87389; 87491; 87591; 96372; 81003; 86592; 86762; 87081; 87480; 87510; 87660; G0378; J0702

== ENCOUNTER 2022-01-04 10:53 | Outpatient (CLI) | payer MEDICAID, SELFPAY ==
[2022-01-04 16:14] VITALS: BP 114/58; PULSE 88; TEMP 36.8
[2022-01-04 16:18] VITALS: BP 114/58; PULSE 88
[2022-01-04] MEDS: Betamet Acet/Betamet Na Ph Inj. 30 MG/5 ML 12 MG IM (16:28)
--- NOTE | 2022-01-04 17:06 | PDOC.NST_ITS ---
Date of service: 01/04/22 Time of Service: 16:06 NST Evaluation Reason for NST Reasons for Nonstress Test: OTHER, SEE COMMENT Gestational Age Gestational Age in Weeks and Days: 33 Weeks and 0Days Test and Monitor Explained Test/Monitor Explained: Test Explained, Monitor Explained and Patient Verbalized Understanding Vital Signs Blood Pressure: 114/58 Pulse: 88 Temperature: 98.2 F Urine Results Urine Protein: Negative Urine Ketones: Positive Urine Glucose: Negative Urine Blood: Negative NST Information Date on Monitor: 01/04/22 Time on Monitor: 16:16 NST Interventions: PO Hydration NST Evaluation Patient States Movement: Present Note NST Note Note: NST done due to signs of labor yesterday and patient needing second dose of betamethasone IM today. We also zoie her VZV today. Records release for at [facility] and a blank one for records from [place] signed. She will call back with the information from [place] office for that one to be faxed for labs/US etc this . NST today is reactive and reassuring CAT I. No signs of labor. She has an appointment with MD next week and is aware of how to call provider geographic information systems director if needed. SANDY NST Reviewed and Verified by: Liana Villalobos
[2022-01-04 17:08] VITALS: BP 114/58; PULSE 88; TEMP 36.8
[2022-01-04 17:17] VITALS: BP 114/58; PULSE 88; TEMP 36.8
[2022-01-06 11:05] LABS: Varicella IgG Antibody Negative (See Note)
== END 2022-01-04 17:00 | disposition home or self-care (01) ==
LOC: BCD 10:55 → OBS 15:49
PROVIDERS: PCP Registered Nurse; Visit Provider Advanced Practice Midwife
DX: O47.03 False labor before 37 completed weeks of gestation, third trimester (principal); O26.893 Other specified pregnancy related conditions, third trimester; Z3A.33 33 weeks gestation of pregnancy
CPT/HCPCS: 59025; 86787; 96372; J0702

== ENCOUNTER 2022-01-06 15:40 | Observation (INO) | payer MEDICAID, SELFPAY ==
[2022-01-06 16:41] VITALS: BP 101/51; PULSE 82; RESP 22; TEMP 36.8
[2022-01-06 16:43] VITALS: BP 101/51; PULSE 82; RESP 20; TEMP 36.8
--- NOTE | 2022-01-07 11:10 | PGE_ITS ---
Date of service: 01/06/22 Time of Service: 10:11 Pelvic Exam Dilation: 2 Effacement (%): 25 station: -2 Position: OA Cervix Position: mid Consistency: soft Vaginal Exam Presentation: Cephalic Comments: No blood on exam glove. None on perineum. Contractions Monitor Mode: External Contraction Frequency(min): none-no contractions on monitor. None palpated. Fetus A Monitor: External (US) Heart Rate Baseline: 145 Variability: Moderate (6-25 BPM) Categories: Category I FHR Rhythm: Regular Characteristics: Normal Accelerations: 15 X 15 Amniotic Membrane Status: Intact Assessment and Plan Assessment and plan (1) Inadequate social support: Status: Acute Assessment and plan: Pt has been evaluated by Ja Daniels LCSW who will provide ongoing support. (2) Food insecurity: Status: Acute (3) History of delivery, currently : Status: Acute Assessment and plan: No evidence of labor, or placental abruption. Pt is stable and will be discharged to home with plans for f/u early next week. Objective Temp Pulse Resp BP 98.2 F 82 20 101/51 L 01/06/22 16:43 01/06/22 16:43 01/06/22 16:43 01/06/22 16:43 Objective Narrative Objective Narrative: Pt observed on . No contractions noted. Reassuring FHR and no evidence of vaginal bleeding. I discussed with pt remaining on overnight for observation. She declined. She stated that her son has separation anxiety and cries uncontrollably so she is unable to leave him. I reiterated that she cannot have her son with her while an inpt without someone to care for him. She requests to go home. Pt's other concern was addressed by Ja DIAZW provided pt with support for transportation and other social needs. Pt was instructed to call 911 in the event of another bleeding episode if transportation was not available Subjective Interval history since last seen: Pt is a 26yo female who called the [facility] earlier today to report vaginal bleeding running down her leg. She presented later in the day when she could obtain a ride. She is accompanied by her son, a friend with her infant. Pt is currently 33w6d EGA by 8w OB u/s performed at [facility]. She presented to 01/03/22 with concern for labor. Pt's cervix was ~ 3cm and did not change during the course of her evaluation. U/S confirmed VXT rosario with appropriate growth. Pt received Betamethsone x 2 doses. GBS RV cx neg. Now with cramping since yesterday. Suprapubic and back. Sharp and constant. No regular contractions. Pt reports blood running down her leg this morning. None since. No changes bowel and bladder habits.
[2022-01-10 16:01] LABS: Chlamydia Result Negative (Negative); GC Result Negative (Negative)
== END 2022-01-06 18:45 | disposition home or self-care (01) ==
PROVIDERS: Advanced Practice Midwife; Admitting Provider Obstetrics & Gynecology Gynecology; PCP Registered Nurse; Visit Provider Obstetrics & Gynecology Gynecology
DX: O09.93 Supervision of high risk pregnancy, unspecified, third trimester (principal); O47.03 False labor before 37 completed weeks of gestation, third trimester; Z3A.33 33 weeks gestation of pregnancy; Z59.41 Food insecurity
CPT/HCPCS: 87491; 87591

== ENCOUNTER 2022-01-09 18:31 | Observation (INO) | payer MEDICAID, SELFPAY ==
[2022-01-09 19:08] VITALS: BP 131/70; PULSE 105; RESP 18; TEMP 36.5
[2022-01-09 19:40] LABS: ROM Plus Negative
--- NOTE | 2022-01-09 20:51 | W.PM.PROGNOT ---
Date of Service Date of service: 01/09/22 Time of Service: 19:51 Assessment and Plan Assessment and plan (1) History of delivery, currently : Status: Acute Assessment and plan: No current e/o active labor or rupture of membranes though the patient is sure that her water broke today. Attempts were made to reach [facility] for a consult on possible transport due to her concern and h/o PTD but their NICU is full (as is [facility]). She reports that since she was first checked she is more uncomfortable and feels more pressure. Her cervix was checked again and was unchanged. She desires pain medication and will be kept here overnight for observation. Subjective Subjective Interval history since last seen: Pt reports that around 1800 she experienced a gush of fluid that soaked her pants. She had no leaking after that. She denies any bleeding since last week. Denies intercourse in the past few days. No unusual discharge. She was seen here 2 days ago with complaints of having a gush of blood in the am. By the time she was able to get transportation and get here late afternoon, there was no evidence of bleeding or labor. She was encouraged to stay the night but refused. She reports that with her first (previously recorded as 32wk) she was having cramping for several days and then they broke her water and she delivered the following day. Her second baby she says she was induced at 36wks because she was cramping and had n/v. She says they broke her water and the baby was born 1hr later. She says she never had leaking after the initial gush of fluid. Exam Const General: cooperative, healthy appearing and no acute distress Orientation: alert, awake and oriented x3 [facility] Head: normocephalic and atraumatic GI Other: Gravid, NT to palpation. No ctxs palpated. +FM felt. External Female Exam: normal external appearance Speculum Exam - Vagina: normal appearance of the vagina Speculum Exam - Cervix: normal appearance of the cervix (though difficult to visualize due to vaginal wall prolapse) Manual OB Exam: dilated 2, effaced 50% and station high Other: Small amount of pink-tinged fluid on chucks pad. No pooling visualized on speculum exam. No fluid with coughing. Minimal whitish discharge. Neuro General: patient alert, patient awake and patient oriented x3 Objective Last Vital Signs Temp 97.7 F 01/09/22 19:08 Pulse 105 H 01/09/22 19:08 Resp 18 01/09/22 19:08 BP 131/70 01/09/22 19:08 Laboratory Results - last 24 hr 01/09/22 19:01 Membranes Rupture Negative Objective Narrative Objective Narrative: Records from her first delivery at [facility] were obtained and she delivered at 38.2wks. She had A1GDM and presented at 4cm dilated - progressed to 5cm and then received an epidural and underwent AROM with thick mec. She had pitocin augmentation and pushed x1hr followed by an uncomplicated VD.
[2022-01-09] MEDS: Ondansetron 4 MG TAB PO (21:20)
[2022-01-09 21:24] VITALS: BP 127/68; PULSE 103; RESP 20; TEMP 36.8
[2022-01-09] MEDS: Lactated Ringers 1,000 ML 125 ML IV (22:00)
[2022-01-09] MEDS: LORazepam 0.5 MG TAB PO (22:17)
[2022-01-09 22:54] LABS: Bilirubin Negative (Negative); Blood Moderate (Negative); Clarity Clear (Clear); Glucose Negative (Negative); Ketones 40 mg/dL (Negative); Leukocyte Esterase Negative (Negative); Nitrite Negative (Negative); Urobilinogen 0.2 EU/dL (Up TO 0.2)
[2022-01-09 23:03] LABS: Bacteria Negative HPF (Negative); C & S Indicated? No; Crystals Negative HPF (Negative); Epithelial Cells Few HPF (Negative); Mucus Negative (Negative); RBC >50 HPF (0-2); WBC Negative HPF (0-5)
[2022-01-09] MEDS: Zolpidem 10 MG TAB PO (23:03)
[2022-01-09 23:04] VITALS: BP 112/59; PULSE 96; RESP 18; TEMP 36.5
[2022-01-09 23:05] VITALS: BP 112/59; PULSE 96
[2022-01-10] VITALS (7 sets, daily range): BP systolic 97–123; BP diastolic 49–64; PULSE 82–93; RESP 14–20; TEMP 36.4–36.8
--- NOTE | 2022-01-10 | DI.US_ITS ---
Exam(s) US OB CERVICAL LENGTH EXAM: US OB CERVICAL LENGTH CLINICAL HISTORY: contractions and r/o rupture of membranes. COMPARISON: No exams were available for comparison TECHNIQUE: Limited transabdominal and transvaginal obstetrical ultrasound performed. FINDINGS: Sonographic images demonstrate a single intrauterine gestation in cephalic position. Placenta:Posterior and grade 1. 4.9 cm from the tip of the placenta to the internal os Predicted gestational age: 34+3 weeks Estimated date of delivery 18 February 2022 : heart rate motion is Dopplered at: 150 BPM. Amniotic fluid index: 10.3 cm. Amount of fluid is within normal limits. Cervix 4 cm in length. Cervical os is closed. IMPRESSION: Intact cervix. Normal GHISLAINE. DATA REPOSITORY:
[2022-01-10] MEDS: LORazepam 0.5 MG TAB PO (11:02)
[2022-01-10] MEDS: Ondansetron O.D.T. 4 MG TABEF PO (11:02)
--- NOTE | 2022-01-10 14:42 | W.PM.PROGNOT ---
Date of Service Date of service: 01/10/22 Time of Service: 13:42 Assessment and Plan Assessment and plan (1) History of delivery, currently : Status: Acute Assessment and plan: No current evidence of PTL or ROM. Will plan for D/C to home. We had a long discussion about reasons to call us and how to get to the hospital. She should call 911 if she is truly concerned for labor. The cramping/back pain she is having has not led to cervical change so things to be worried about would be a change from what she is experiencing today. No e/o infections. She has a f/u visit tomorrow in the office. If she is feeling better she does not have to come to that appt and can return next week instead. Subjective Subjective Interval history since last seen: Per nursing, the pt slept overnight without complaints. The pt reports still seeing some blood when wiping. She also reports continued lower back and lower pelvis cramping. She feels anxious. Exam Const General: cooperative, healthy appearing and comfortable [facility] Head: normocephalic and atraumatic GI Other: gravid, mild generalized tenderness to palpation all over belly and back. Objective Last Vital Signs Temp 97.5 F L 01/10/22 07:58 Pulse 85 01/10/22 14:31 Resp 14 01/10/22 07:58 BP 105/55 L 01/10/22 14:31 Laboratory Results - last 24 hr 01/09/22 01/09/22 01/09/22 18:32 18:32 19:01 WBC Cancelled RBC Cancelled Hgb Cancelled Hct Cancelled MCV Cancelled MCH Cancelled MCHC Cancelled RDW Cancelled Plt Count Cancelled MPV Cancelled Urine Color Urine Clarity Urine pH Ur Specific [place] Urine Protein Urine Ketones Urine Blood Urine Nitrite Urine Bilirubin Urine Urobilinogen Ur Leukocyte Esterase Urine RBC Urine WBC Ur Epithelial Cells Urine Crystals Urine Bacteria Urine Mucus Ur Culture Indicated? Urine Glucose Membranes Rupture Negative Patient ABO/Rh Cancelled 01/09/22 22:30 WBC RBC Hgb Hct MCV MCH MCHC RDW Plt Count MPV Urine Color Yellow Urine Clarity Clear Urine pH 6.0 Ur Specific [place] 1.020 Urine Protein Negative Urine Ketones 40 H Urine Blood Moderate H Urine Nitrite Negative Urine Bilirubin Negative Urine Urobilinogen 0.2 Ur Leukocyte Esterase Negative Urine RBC >50 H Urine WBC Negative Ur Epithelial Cells Few Urine Crystals Negative Urine Bacteria Negative Urine Mucus Negative Ur Culture Indicated? No Urine Glucose Negative Membranes Rupture Patient ABO/Rh Objective Narrative Objective Narrative: Vag path swab is negative x3. Urine dip last night was only + for blood. A repeat one done this afternoon is negative. No further loss of fluid or blood noted on the pads. No palpable or obvious ctxs on toco. Sono showed GHISLAINE of 10.3, 4cm cervical length. Repeat vaginal exam revealed the cervix to be unchanged from prior exams last night.
--- NOTE | 2022-01-11 08:51 | W.OBNST ---
Date of service: 01/10/22 Time of Service: 07:51 NST Evaluation Reason for NST Reasons for Nonstress Test: LABOR Gestational Age Gestational Age in Weeks and Days: 33 Weeks and 6Days Test and Monitor Explained Test/Monitor Explained: Test Explained, Monitor Explained and Patient Verbalized Understanding Vital Signs Blood Pressure: 105/55 Pulse: 85 Temperature: 98.2 F Urine Results Urine Protein: Negative Urine Ketones: Negative Urine Glucose: Negative Urine Blood: Negative NST Information Date on Monitor: 01/10/22 Time on Monitor: 14:29 Date off Monitor: 01/10/22 Time off Monitor: 15:58 Total Time on Monitor: 89 NST Interventions: PO Hydration NST Evaluation Patient States Movement: Present FHR Baseline: 150 Variability: Moderate 6-25 bpm Accelerations: 15x15 Decelerations: None NST Results: Reactive Note NST Note Note: Reactive NST NST Reviewed and Verified by: Ghazal Cruz
[2022-01-11 08:53] VITALS: BP 105/55; PULSE 85; TEMP 36.8
== END 2022-01-10 17:10 | disposition home or self-care (01) ==
PROVIDERS: Admitting Provider Obstetrics & Gynecology; PCP Registered Nurse; Visit Provider Obstetrics & Gynecology
DX: O26.893 Other specified pregnancy related conditions, third trimester (principal); O09.213 Supervision of pregnancy with history of pre-term labor, third trimester; Z3A.33 33 weeks gestation of pregnancy
CPT/HCPCS: 76815; 84112; 85027; 86900; 86901; 96360; 96361; 59025; 81003; 81015; 87480; 87510; 87660; J8597

== ENCOUNTER 2025-07-03 15:00 | Outpatient (REF) | payer MEDICAID, SELFPAY ==
[2025-07-03 21:03] LABS: HCT 45.4 % (36.0-46.0); HGB 13.8 g/dL (11.2-15.7); MCH 25.4 pg (27.0-33.0); MCHC 30.4 % (32.0-36.0); MCV 84 fL (80-95); MPV 10.5 fL (8.0-11.0); Platelet Count 379 10^3/uL (130-400); RBC 5.44 10^6/uL (3.93-5.22); RDW 14.7 % (11.7-14.6); RDW-SD 44.2 fL; WBC 13.45 10^3/uL (4.4-10.8)
[2025-07-03 21:25] LABS: Hemoglobin A1C 5.4 % (<5.7); Iron 26 ug/dL (50-170)
[2025-07-03 21:26] LABS: ALT 16 U/L (10-49); AST 14 U/L (<34); Albumin 4.2 g/dL (3.4-5.0); Alkaline Phosphatase 83 U/L (46-116); Anion Gap 6.4 mmol/L (3-11); BUN 7 mg/dL (9-23); Bilirubin, Total 0.20 mg/dL (0.2-1.2); CO2 27.6 mmol/L (20.0-31.0); Calcium 8.9 mg/dL (8.3-10.6); Chloride 110 mmol/L (98-107); Glucose 62 mg/dL (74-106); Potassium 4.2 mmol/L (3.5-5.1); Sodium 144 mmol/L (136-145); Total Protein 7.5 g/dL (5.7-8.2)
[2025-07-03 21:28] LABS: TSH 0.47 uIU/mL (0.55-4.78)
[2025-07-03 21:29] LABS: Ferritin 60 ng/mL (7-271)
[2025-07-04 17:12] LABS: T3,Free 3.5 pg/mL (2.8-5.3)
[2025-07-04 18:41] LABS: HIV-1/2 Ag & Ab Screen Negative (Negative)
[2025-07-04 18:43] LABS: Hep B Core Antibody Negative (Negative)
[2025-07-07 12:15] LABS: Syphilis Serology (RPR) Negative (Negative)
[2025-07-07 13:18] LABS: Chlamydia Result Negative (Negative); GC Result Negative (Negative)
== END 2025-07-03 15:01 | disposition home or self-care (01) ==
LOC: NCHCN 15:00
PROVIDERS: PCP Registered Nurse; Visit Provider Physician Assistant
DX: R07.0 Pain in throat (principal); E16.2 Hypoglycemia, unspecified; Z11.3 Encounter for screening for infections with a predominantly sexual mode of transmission; R35.0 Frequency of micturition; R53.81 Other malaise; R53.83 Other fatigue
CPT/HCPCS: 80053; 85027; 86704; 87077; 87389; 87491; 87591; 82728; 83036; 83540; 84439; 84443; 84481; 86592; 87086; 87186